=== PATIENT | female | born 1985 | race Caucasian/White ===

== ENCOUNTER → 2017-02-15 | Outpatient (REF) | payer OTHER ==
[2017-02-15 20:07] LABS: BASO % 0.4 % (0.0-1.0); EOS # 0.3 K/mm3 (0.0-0.50); EOS % 2.7 % (0.0-3.0); LARGE UNSTAINED CELL # 0.2 K/mm3 (0.0-0.4); LARGE UNSTAINED CELL % 1.6 % (0.0-4.0); LYMPH % 17.7 % (24.0-44.0); MEAN CORPUSCULAR HEMOGLOBIN 30.9 pg (27.0-33.0); MEAN CORPUSCULAR HGB CONC 32.5 g/dl (32.0-36.5); MEAN CORPUSCULAR VOLUME 95.1 fl (80.0-96.0); MONO # 0.6 K/mm3 (0.0-0.8); MONO % 4.9 % (0.0-5.0); NEUTROPHILS # 8.4 K/mm3 (1.8-7.7); NEUTROPHILS % 72.7 % (36.0-66.0); PLATELET COUNT, AUTOMATED 533 k/mm3 (150-450); RED CELL DISTRIBUTION WIDTH 13.8 % (11.5-14.5); WHITE BLOOD COUNT 11.5 K/mm3 (4.0-10.0)
[2017-02-15 20:28] LABS: ALBUMIN 3.8 GM/DL (3.2-5.2); ALBUMIN/GLOBULIN RATIO 1.15 (1.00-1.93); ALKALINE PHOSPHATASE 74 U/L (45-117); ALT/SGPT 14 U/L (12-78); AMYLASE 28 U/L (25-115); ANION GAP 6 MEQ/L (8-16); AST/SGOT 7 U/L (15-37); BILIRUBIN,TOTAL 0.3 MG/DL (0.2-1.0); BLOOD UREA NITROGEN 11 MG/DL (7-18); CARBON DIOXIDE LEVEL 29 MEQ/L (21-32); CHLORIDE LEVEL 107 MEQ/L (98-107); CREATININE FOR GFR 0.73 MG/DL (0.55-1.02); GLOMERULAR FILTRATION RATE > 60.0 (>60); GLUCOSE, FASTING 91 MG/DL (70-105); POTASSIUM SERUM 4.3 MEQ/L (3.5-5.1); SODIUM LEVEL 142 MEQ/L (136-145); TOTAL PROTEIN 7.1 GM/DL (6.4-8.2)
== END ==
LOC: M LABDRWAD 09:59
PROVIDERS: ATTEND Physician Assistant
DX: R10.11 Right upper quadrant pain (principal)

== ENCOUNTER 2021-01-26 00:43 | Inpatient (IN) | payer MEDICAID, OTHER ==
[2021-01-26] VITALS (26 sets, daily range): BP systolic 104–146; BP diastolic 62–89
[~2021-01-26] VITALS: Ht 162.6 cm; Wt 75.0 kg
[2021-01-26] MEDS ORDERED: LACTATED RINGER'S 1000 ML IV STA (01:22)
[2021-01-26] MEDS ORDERED: LR 1,000 ML IV SCH ×2 (01:25→03:40)
--- NOTE | 2021-01-26 01:33 | HPEPDOC ---
Obstetrical History & Physical General Date of Admission January 26, 2021 at 01:22 History of Present Illness 35-year-old G4, P3003 of unknown gestational age (no care). Presents with heavy vaginal bleeding and frequent, mild to moderately painful uterine contractions over the past several hours. Denies any large loss of fluid. Reports regular movement. ROS: no WHITAKER, cp, sob, fever/chills/nausea/vomiting. course: No care. Heroin use throughout . States she did not know she was until 2 weeks ago. PMH: Arteriovenous malformation status post craniotomy neurovascular surgery. Anxiety/Depression. Opioid addiction/Heroin use. SH: Craniotomy/neurosurgery. 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 (2002, 2004,2009) Sochx: No tobacco, alcohol or drug use FamHx: none reported. labs: Unavailable imaging: Not done Past Medical History Allergies Coded Allergies: No Known Allergies (Verified , 04/15/05) Physical Examination Physical Examination GENERAL: Alert and oriented times three. ABDOMEN: Gravid . +fundal tenderness. +guarding/rebound (acute abdomen). Fundal height 36-37cm. FETUS: Is vertex (VTX) by sterile vaginal examination (SVE), fetus is vertex (VTX) by Rey. HEART RATE: Regular rate and rhythm. LUNGS: Clear to auscultation (CTA). EXTREMITIES: No edema. No clonus. Deep tendon reflexes (DTRs) +. SVE: >300ml blood clot removed; active bleeding. 1cm dilated. US,bedside: cephalic EFM: 150bpm, moderate variability, reactive, no decels Golinda: ctxs every 1-2 min. US, official: evidence of intrauterine blood clot collection and large placental abruption. See official report. EGA c/w 35-37 weeks. Vital Signs/I&O Vital Signs Date Time Temp Pulse Resp B/P (MAP) Pulse Ox O2 Delivery O2 Flow Rate FiO2 01/26/21 00:52 97.2 150 18 135/89 (104) 99 Room Air Assessment/Plan Assessment 35yo . Acute placental abruption, clinically unstable. Membranes appear intact. Late /early term based on US measurements. Plan Admitted to L&D Consented for emergent PLTCS Anesthesia and Peds/ NICU notified. Preparations for the OR being made. NIRMAL MO DO January 26, 2021 01:33
[2021-01-26] MEDS ORDERED: PREN29CH2 PO (01:54)
[2021-01-26] MEDS ORDERED: TUMS500C PO (01:54)
[2021-01-26] MEDS ORDERED: ceFAZolin 2 GM/D5W 50 ML IV BAG (J0690 PER 500MG) As Ordered ONE (01:58)
[2021-01-26] MEDS ORDERED: BICITRA 30ML SOLN UDC As Ordered ONE (01:58)
[2021-01-26] MEDS ORDERED: AZITHROMYCIN INJ 500MG VIAL (J0456 PER 500MG) As Ordered ONE (01:59)
[2021-01-26 02:08] LABS: BASO # 0.1 10^3/uL (0.0-0.2); BASO % 0.5 % (0.0-1.0); EOS # 0.1 10^3/uL (0.0-0.5); EOS % 0.5 % (0.0-3.0); HEMATOCRIT 30.2 % (36.0-47.0); HEMOGLOBIN 9.5 g/dl (12.0-15.5); LYMPH # 2.4 10^3/uL (1.5-5.0); LYMPH % 11.4 % (24.0-44.0); MEAN CORPUSCULAR HEMOGLOBIN 27.9 pg (27.0-33.0); MEAN CORPUSCULAR HGB CONC 31.5 g/dl (32.0-36.5); MEAN CORPUSCULAR VOLUME 88.8 fl (80.0-96.0); MONO # 1.2 10^3/uL (0.0-0.8); MONO % 5.9 % (2.0-8.0); NEUTROPHILS # 16.4 10^3/uL (1.5-8.5); NEUTROPHILS % 79.6 % (36.0-66.0); PLATELET COUNT, AUTOMATED 383 10^3/uL (150-450); WHITE BLOOD COUNT 20.7 10^3/uL (4.0-10.0)
[2021-01-26] MEDS ORDERED: MORPHINE PRES-FREE INJ 10 MG/10 ML VIAL (J2274) As Ordered ONE (02:09)
[2021-01-26] MEDS ORDERED: AZITHROMYCIN INJ 500 MG, VIAL MATE ADAPTER 1 EACH in NS 250 ML IV ONE (02:10)
[2021-01-26] MEDS ORDERED: ceFAZolin SOD 2 GM in IV 1 EA IV ONE (02:10)
[2021-01-26] MEDS ORDERED: dexameTHASONE 4 MG/ML 1ML VIAL (J1100 PER 1MG) As Ordered ONE (02:11)
[2021-01-26] MEDS ORDERED: ONDANSETRON 4MG/2ML VIAL As Ordered ONE (02:11)
[2021-01-26] MEDS ORDERED: KETOROLAC 60MG 2ML VIAL As Ordered ONE (02:11)
[2021-01-26] MEDS ORDERED: OXYTOCIN 30 UNITS IN 0.9% NaCl 500ML IV BAG (J2590) As Ordered ONE (02:23)
[2021-01-26] MEDS ORDERED: fentaNYL 100 MCG/2 ML INJECTION (J3010) As Ordered ONE ×2 (02:24→03:24)
[2021-01-26] MEDS ORDERED: MIDAZOLAM INJ 2MG/2ML VIAL (J2250 PER 1MG) As Ordered ONE (02:30)
[2021-01-26 02:31] LABS: CORD GAS ABE V -12.8; CORD GAS HCO3 V 18.4 MEQ/L; CORD GAS O2 SAT V 31.8 %; CORD GAS PH V 7.057 UNITS; CORD GAS PO2 V 19.3 mmHg; CORD GAS SBC V 13.4 MEQ/L; CORD GAS TCO2 V 20.5 MEQ/L
[2021-01-26] MEDS ORDERED: OXYTOCIN INJ 10 UNITS/ML VIAL (J2590) As Ordered ONE (02:31)
[2021-01-26 02:32] LABS: CORD GAS ABE A -11.5; CORD GAS HCO3 A 21.4 MEQ/L; CORD GAS O2 SAT A 31.4 %; CORD GAS PCO2 A 85.4 mmHg; CORD GAS PH A 7.016 UNITS; CORD GAS PO2 A 20.3 mmHg; CORD GAS SBC A 14.3 MEQ/L
[2021-01-26 02:33] LABS: ALT/SGPT 8 U/L (12-78); BILIRUBIN,TOTAL 0.2 MG/DL (0.2-1.0); GLOMERULAR FILTRATION RATE > 60.0 (>60); LDH LACTATE DEHYDROGENASE 183 U/L (84-246)
[2021-01-26 02:34] LABS: INR 1.06
[2021-01-26] MEDS ORDERED: SUGAMMADEX SODIUM 500 MG/5 ML VIAL (BRIDION) As Ordered ONE (02:39)
[2021-01-26] MEDS ORDERED: METOCLOPRAMIDE INJ 10MG/2ML VIAL (J2765 PER 1) As Ordered ONE (02:39)
--- NOTE | 2021-01-26 03:09 | REPVR ---
PROCEDURE INFORMATION: Exam: US After First Trimester, Transabdominal Exam date and time: 01/26/2021 2:03 AM Age: 35 years old Clinical indication: Lmp or gestational age (in weeks): Unknown; Antepartum complications; Bleeding; ; Additional info: Unknown ega/third trimester, heavy bleeding (bedside us/efw). According to the ultrasound technologist sonographer's notes, Dr. Mueller was present during the ultrasound. TECHNIQUE: Imaging protocol: Real-time transabdominal obstetrical ultrasound of the maternal pelvis and a second or third trimester with image documentation. COMPARISON: No relevant prior studies available. FINDINGS: Gestation: There is a single live intrauterine . heart rate: 158 bpm presentation: Cephalic Placenta: Grade 2. The location of the placenta is posterior. There is a 12.4 cm x 10 cm x 12.1 cm complex area along the right lateral superior tip of the placenta and an additional 10.4 cm x 8.9 cm x 11.2 cm complex predominantly hyperechoic region along the right lateral inferior placental tip without internal vascularity, which may represent hemorrhage and placental abruption. Amniotic fluid: Within normal limits. Amniotic fluid index: 14.8 cm ANATOMY: midline falx: Within normal limits. lateral ventricles: Within normal limits. choroid plexus: Within normal limits. cerebellum: Suboptimally evaluated due to positioning. cisterna magna: Suboptimally evaluated due to positioning. upper lip and nose: Within normal limits. heart four-chamber view, heart size and position: Within normal limits. kidneys: Within normal limits. stomach: Within normal limits. urinary bladder: Within normal limits. spine: Within normal limits. Umbilical cord insertion site into the abdomen: Within normal limits. Umbilical cord vessel number: Normal 3 vessel umbilical cord. arms and hands: The right upper extremity is within normal limits as visualized. The left upper extremity was suboptimally evaluated due to positioning. legs and feet: The right lower extremity is within normal limits as visualized. The left lower extremity was suboptimally evaluated due to positioning. BIOMETRY: Gestational age (AUA): 35 weeks 4 days Estimated due date (AUA): 02/26/2021 Estimated weight: 2749 g (2348 - 3150 g) / 6 lb 0 oz Estimated weight percentile: 52% Biparietal diameter: 8.8 cm; 35 weeks 5 days; 52nd percentile Head circumference: 32.4 cm; 36 weeks 5 days; 68th percentile Abdominal circumference: 32.7 cm; 36 weeks 4 days; 65th percentile Humerus length: 5.7 cm; 32 weeks 6 days; <5th percentile Femur length: 6.5 cm; 33 weeks 3 days; 17 percentile biometric ratios: CI = 0.76 (0.70-0.86); FL/BPD = 0.73 (0.71-0.87); HC/AC = 0.99 (0.93-1.12); FL/AC = 0.20 (0.20-0.24) IMPRESSION: 1. Single live intrauterine in cephalic position with appropriate signs of growth, an estimated gestational age of 35 weeks 4 days, and an estimated due date on 02/26/2021 based on today's ultrasound. 2. 12.4 cm x 10 cm x 12.1 cm complex area along the right lateral superior tip of the placenta and an additional 10.4 cm x 8.9 cm x 11.2 cm complex predominantly hyperechoic region along the right lateral inferior placental tip without internal vascularity, which may represent hemorrhage and are suspicious for placental abruption. Electronically signed by: Braulio Cason On 01/26/2021 03:09:23 AM
[2021-01-26] MEDS ORDERED: MEASLES,MUMPS,RUBELLA VACCINE INJ (MMR-II) (90707) SC SCH (03:15)
[2021-01-26] MEDS ORDERED: OXYTOCIN DRIP 30 UNITS in IV 1 EA IV SCH (03:15)
[2021-01-26] MEDS ORDERED: RHOGAM 300 MCG (1500 IU) INJ (J2790) IM SCH (03:15)
[2021-01-26] MEDS: fentaNYL 100 MCG/2 ML INJECTION (J3010) IV PRN ×8 (03:26→04:01)
--- NOTE | 2021-01-26 03:28 | ROOPDOC ---
[facility] Report Of Operation Report of Operation DATE OF PROCEDURE: 01/26/2021 PREPROCEDURE DIAGNOSES: 1. Early term, versus late gestation (35+4 weeks by today's US measurements). 2. acute placental abruption 3. . No care 4. Opioid/heroin abuse POSTPROCEDURE DIAGNOSES: Same PROCEDURE: Emergent primary low transverse section SURGEON: Sherwin Mueller DO FACOG COMPOSITE MECHANIC: Buster Mclaughlin MD (Essential role in retraction, extraction, and closure of all tissue layers) ANESTHESIA: General ETA ESTIMATED BLOOD LOSS: 1000 mL. IV FLUIDS: 2000 mL LR URINE OUTPUT: 20 mL COMPLICATIONS: None. PREOPERATIVE ANTIBIOTICS: Ancef 2g IV x 1, Azithromycin 500mg IV COMPLICATIONS: none DATA: Apgars 5 and 9. Birthweight 5 g, 8 lbs 2500 oz. [Cord gases: see Meditech] SPECIMENS: none PRIMARY INDICATION FOR : Acute placental abruption, clinically unstable DESCRIPTION OF PROCEDURE: The patient was counseled on the risks, benefits, indications and alternatives of the procedure. Informed consent was obtained. She was taken to the operating room with IV running and placed on the operating table in the dorsal supine position with a leftward tilt. Sequential compression devices were placed on the lower extremities. A Wilks catheter was placed under sterile conditions. She was prepared and draped in normal sterile fashion. A time out was performed per protocol. General anesthesia was administered and the airway was secured. A Pfannenstiel skin incision was made with the 10 blade. The 10 blade was used to dissect down to the level of the rectus sheath fascia. The rectus sheath pressure was incised midline and this was extended bilaterally with manual stretch. The rectus muscle bellies were dissected off the rectus sheath fascia superiorly and inferiorly using blunt dissection. The midline was identified. The peritoneum was identified and entered digitally. The peritoneal opening was extended with manual stretch. The Mobius retractor was placed. A low transverse uterine incision was made with the 10 blade. This was extended with manual stretch. The amniotic sac was punctured, and bloody fluid with a large amount of clot was removed. The baby delivered through the hysterotomy without difficulty. The cord was doubly clamped and cut, and the baby was handed off to awaiting care. data shown above. Cord blood obtained. Cord gases were obtained. The placenta was removed manually. The intrauterine cavity was cleared of all clot and debris. The hysterotomy was closed with 0 Vicryl in running locked fashion. This was reinforced with a second imbricating layer using 0 Vicryl in running fashion. Excellent hemostasis of the hysterotomy was noted. The pelvis was irrigated and the fluid suctioned. The Mobius retractor was removed. The peritoneum was closed with 3-0 Vicryl running fashion. The rectus muscle bellies were reapproximated with interrupted stitches using 3-0 Vicryl. The rectus muscles bellies were hemostatic. The rectus sheath fascia was closed with 0 Vicryl running fashion. The subcutaneous layer was irrigated and the fluid suctioned. Small bleeding vessels were cauterized with Bovie. Excellent hemostasis was noted. The subcutaneous layer was reapproximated with 3-0 Vicryl running fashion. Skin was closed with 3-0 Monocryl in subcuticular fashion. An Optifoam bandage was placed over the closed incision. Sponge, needle and instrument counts were correct per protocol throughout the procedure. The patient tolerated the entire procedure very well. She was extubated and transferred to the PACU in stable condition. DO YASHIRA Palacios JONATHAN R. DO January 26, 2021 03:28
[2021-01-26] MEDS ORDERED: ONDANSETRON 4MG/2ML VIAL IV PRN (03:40)
[2021-01-26] MEDS ORDERED: METOCLOPRAMIDE INJ 10MG/2ML VIAL (J2765 PER 1) IV PRN (03:40)
[2021-01-26] MEDS ORDERED: PERCOCET 5MG/325MG TAB PO PRN (03:40)
[2021-01-26] MEDS ORDERED: ACETAMINOPHEN *IV* 1,000 MG IV ONE ×2 (03:40)
[2021-01-26 03:49] LABS: AMPHETAMINES URINE REFLEX NEGATIVE (NEGATIVE); BARBITURATES URINE REFLEX NEGATIVE (NEGATIVE); BENZODIAZEPINES URINE REFLEX NEGATIVE (NEGATIVE); CANNABINOIDS URINE REFLEX NEGATIVE (NEGATIVE); COCAINE METABOLITE URINE REFLE NEGATIVE (NEGATIVE); METHADONE URINE REFLEX NEGATIVE (NEGATIVE); PHENCYCLIDINE URINE REFLEX NEGATIVE (NEGATIVE); TOTAL PROTEIN,RANDOM URINE 122.3 MG/DL (0.0-12.0)
[2021-01-26] MEDS ORDERED: KETOROLAC 30 MG/ML 1ML VIAL IV PRN (03:50)
[2021-01-26] MEDS ORDERED: ACETAMINOPHEN 1000MG 100ML IV BTL (OFIRMEV) (J0131 PER 10MG) As Ordered ONE (03:52)
[2021-01-26 04:17] LABS: OPIATES URINE REFLEX PENDING CONFIRMATION (NEGATIVE)
[2021-01-26] MEDS: LR 1,000 ML IV SCH ×3 (04:39→20:19)
[2021-01-26] MEDS: PERCOCET 5MG/325MG TAB PO PRN (07:35)
[2021-01-26] MEDS ORDERED: diphenhydrAMINE 50MG/ML VIAL (J1200) As Ordered ONE (08:12)
[2021-01-26] MEDS ORDERED: diphenhydrAMINE 50MG/ML VIAL (J1200) IV STA (08:13)
[2021-01-26] MEDS: ACETAMINOPHEN 500 MG TAB PO PRN (08:14)
[2021-01-26] MEDS ORDERED: BOOSTRIX/ADACEL VACCINE (DIPHTH/PERTUSS/ACELL/TETANUS) 0.5ML SYR IM ONE (09:00)
[2021-01-26 09:14] LABS: BASO % 0.1 % (0.0-1.0); HEMATOCRIT 24.1 % (36.0-47.0); HEMOGLOBIN 7.7 g/dl (12.0-15.5); LYMPH # 1.5 10^3/uL (1.5-5.0); LYMPH % 8.9 % (24.0-44.0); MEAN CORPUSCULAR VOLUME 87.6 fl (80.0-96.0); MONO # 0.6 10^3/uL (0.0-0.8); MONO % 3.7 % (2.0-8.0); NEUTROPHILS # 14.2 10^3/uL (1.5-8.5); NEUTROPHILS % 86.3 % (36.0-66.0); RED BLOOD COUNT 2.75 10^6/uL (4.00-5.40); WHITE BLOOD COUNT 16.4 10^3/uL (4.0-10.0)
[2021-01-26 09:17] LABS: PLATELET COUNT, AUTOMATED 188 10^3/uL (150-450)
[2021-01-26] MEDS: DOCUSATE SODIUM 100MG CAPSULE PO SCH ×2 (09:22→21:00)
[2021-01-26] MEDS: KETOROLAC 30 MG/ML 1ML VIAL IV SCH ×3 (09:22→21:10)
[2021-01-26] MEDS: PRENATAL VITAMINS CHEWABLE TABLET PO SCH (09:22)
[2021-01-26 09:54] LABS: HEPATITIS C VIRUS ABY INDEX < 0.0 INDEX (<0.8); HIV 1&2 SCREEN CENTAUR NEGATIVE (NEGATIVE)
[2021-01-26] MEDS: ONDANSETRON 4MG/2ML VIAL IV PRN ×2 (11:27→20:19)
[2021-01-26] MEDS: MORPHINE 4 MG/ML 1ML VIAL/SYRINGE (J2270) IV PRN ×3 (11:28→20:18)
[2021-01-26] MEDS ORDERED: PROMETHAZINE 25 MG TAB PO ONE (13:35)
[2021-01-26] MEDS: METOCLOPRAMIDE INJ 10MG/2ML VIAL (J2765 PER 1) IV PRN (13:53)
[2021-01-26] MEDS ORDERED: ACETAMINOPHEN 500 MG TAB PO ONE (16:45)
[2021-01-26] MEDS ORDERED: diphenhydrAMINE 50MG/ML VIAL (J1200) IV ONE (16:45)
[2021-01-26] MEDS ORDERED: METOCLOPRAMIDE INJ 10MG/2ML VIAL (J2765 PER 1) IV SCH (18:00)
[2021-01-26] MEDS: diphenhydrAMINE 50MG/ML VIAL (J1200) IV PRN (21:53)
[2021-01-27 02:00] VITALS: BP 120/72
[2021-01-27] MEDS: KETOROLAC 30 MG/ML 1ML VIAL IV SCH ×2 (03:38→08:46)
[2021-01-27] MEDS: diphenhydrAMINE 50MG/ML VIAL (J1200) IV PRN ×2 (03:38→09:47)
[2021-01-27] MEDS: LR 1,000 ML IV SCH (03:38)
[2021-01-27] MEDS: PERCOCET 5MG/325MG TAB PO PRN ×2 (05:42→17:06)
[2021-01-27 05:56] VITALS: BP 116/68
[2021-01-27] MEDS: METOCLOPRAMIDE INJ 10MG/2ML VIAL (J2765 PER 1) IV PRN (06:17)
[2021-01-27] MEDS ORDERED: LACTATED RINGER'S 1000 ML IV ONE (06:35)
[2021-01-27 07:28] LABS: HEMATOCRIT 22.2 % (36.0-47.0); HEMOGLOBIN 7.2 g/dl (12.0-15.5); RED BLOOD COUNT 2.51 10^6/uL (4.00-5.40); WHITE BLOOD COUNT 10.9 10^3/uL (4.0-10.0)
[2021-01-27 07:29] LABS: MEAN CORPUSCULAR HEMOGLOBIN 28.7 pg (27.0-33.0); MEAN CORPUSCULAR HGB CONC 32.4 g/dl (32.0-36.5); MEAN CORPUSCULAR VOLUME 88.4 fl (80.0-96.0); PLATELET COUNT, AUTOMATED 191 10^3/uL (150-450)
[2021-01-27] MEDS: DOCUSATE SODIUM 100MG CAPSULE PO SCH ×2 (08:45→21:45)
[2021-01-27] MEDS: PRENATAL VITAMINS CHEWABLE TABLET PO SCH (08:45)
[2021-01-27] MEDS ORDERED: BOOSTRIX/ADACEL VACCINE (DIPHTH/PERTUSS/ACELL/TETANUS) 0.5ML SYR IM ONE (09:00)
[2021-01-27 10:00] VITALS: BP 136/79
[2021-01-27 14:00] VITALS: BP 114/71
[2021-01-27] MEDS: IBUPROFEN 800 MG TAB PO SCH (17:05)
[2021-01-27 18:00] VITALS: BP 125/73
[2021-01-27 22:00] VITALS: BP 125/70
[2021-01-28] MEDS: PERCOCET 5MG/325MG TAB PO PRN ×2 (00:05→06:13)
[2021-01-28] MEDS: SIMETHICONE 80MG CHEW TAB PO PRN ×2 (00:05→11:09)
[2021-01-28 02:00] VITALS: BP 114/69
[2021-01-28] MEDS: IBUPROFEN 800 MG TAB PO SCH ×2 (04:09→08:15)
[2021-01-28 06:00] VITALS: BP 129/78
[2021-01-28] MEDS ORDERED: IBUP80TA PO (07:27)
[2021-01-28] MEDS ORDERED: OXYC1TAB23 PO (07:27)
--- NOTE | 2021-01-28 07:34 | DS.PDOC ---
Discharge Summary General Date of Admission January 26, 2021 at 01:22 Date of Discharge January 28, 2021 Discharge Summary PROCEDURES PERFORMED DURING STAY: . ADMITTING DIAGNOSES: 1. 35 weeks, placental abruption. DISCHARGE DIAGNOSES: 1. same. COMPLICATIONS/CHIEF COMPLAINT: Labor Check. HISTORY OF PRESENT ILLNESS: 35 yo at 35 week, with no care, presents to hospital with sharp pains and vaginal bleeding. She was diagnosed with a large placental abruption by ultrasound. She proceeded to an urgent section. There were no complications. Her post-operative course was significant for anemia, requiring blood transfusion. She had adequate return of bladder and bowel function. She was stable for discharge day#2. Baby in NICU. DISCHARGE MEDICATIONS: Please see below. ALLERGIES: Please see below. PHYSICAL EXAMINATION ON DISCHARGE: VITAL SIGNS: Please see below. GENERAL: WNL HEENT: NCAT CARDIOVASCULAR EXAMINATION: RRR RESPIRATORY EXAMINATION: CT ABDOMINAL EXAMINATION: NT, FF EXTREMITIES: NT, tr edema LABORATORY DATA: Please see below. PROGNOSIS: good ACTIVITY: [As tolerated]. DIET: reg DISCHARGE PLAN: home DISCHARGE INSTRUCTIONS: 1. d/c home instructions reveiwed fu office 2 weeks.. DISCHARGE CONDITION: Stable. TIME SPENT ON DISCHARGE: Greater than 10 minutes. Vital Signs/I&Os Vital Signs Date Time Temp Pulse Resp B/P (MAP) Pulse Ox O2 Delivery O2 Flow Rate FiO2 01/28/21 06:13 20 01/28/21 06:00 99.3 94 129/78 (95) 100 Room Air 01/26/21 10:21 2.0 I&O- Last 24 Hours up to 6 AM 01/28/21 06:00 Intake Total 200 ml Output Total 775 ml Balance -575 ml Discharge Medications Scheduled Calcium Carbonate (Tums) 200 Mg Tab.chew, 2 TAB PO QID for cough and congestion, (Reported) Ibuprofen (Ibuprofen) 800 Mg Tablet, 800 MG PO Q8H No115/Iron/Folic Acid ( 19 Chewable Tablet) 1 Each Tab.chew, 1 TAB PO DAILY, (Reported) Scheduled PRN Oxycodone HCl/Acetaminophen (Oxycodone-Acetaminophen 5-325) 1 Each Tablet, 1 TAB PO TIDP PRN for pain Allergies Coded Allergies: codeine (Verified Allergy, Mild, 01/26/21) nausea latex (Verified Allergy, Mild, 5/5/21) states latex sensitive, rash GEORGE HEART MD January 28, 2021 07:34
[2021-01-28] MEDS ORDERED: BOOSTRIX/ADACEL VACCINE (DIPHTH/PERTUSS/ACELL/TETANUS) 0.5ML SYR IM ONE (09:00)
[2021-01-28] MEDS: PRENATAL VITAMINS CHEWABLE TABLET PO SCH (09:52)
[2021-01-28] MEDS: DOCUSATE SODIUM 100MG CAPSULE PO SCH (09:53)
[2021-01-28] MEDS: ACETAMINOPHEN 500 MG TAB PO PRN (11:09)
[2021-02-01 18:07] LABS: Codeine Positive (.); GC Codeine 1998 ng/mL (Cutoff=200); GC Morphine 109020 ng/mL (Cutoff=200); Morphine Positive (.); Opiates Positive (.)
== END 2021-01-28 12:10 | disposition home or self-care (01) | DRG 540 ==
LOC: M LDO 00:43 → M LDI 01:22 → M OBS 04:20
PROVIDERS: ADMIT Obstetrics & Gynecology; ATTEND Obstetrics & Gynecology
PROC: 30233N1 Transfusion of Nonautologous Red Blood Cells into Peripheral Vein, Percutaneous Approach (ICD-10-PCS; 2021-01-26)
PROC: 10D00Z1 Extraction of Products of Conception, Low, Open Approach (ICD-10-PCS; principal; 2021-01-26 03:14)
DX: O45.93 Premature separation of placenta, unspecified, third trimester (principal); Z3A.35 35 weeks gestation of pregnancy; Z37.0 Single live birth; O09.33 Supervision of pregnancy with insufficient antenatal care, third trimester; O90.81 Anemia of the puerperium

== ENCOUNTER → 2025-04-27 | Outpatient (REF) | payer OTHER ==
[~2025-04-27] MED LIST: IBUP80TA PO; OXYC1TAB23 PO; PREN29CH2 PO; TUMS500C PO
[2025-04-27 12:45] LABS: PLATELET COUNT, AUTOMATED 568 10^3/uL (150-450)
[2025-04-27 12:48] LABS: CALCIUM LEVEL 9.2 MG/DL (8.5-10.1); CARBON DIOXIDE LEVEL 29 MMOL/L (20-31); CHLORIDE LEVEL 103 MMOL/L (98-107); CREATININE FOR GFR 0.62 MG/DL (0.55-1.30); GLOMERULAR FILTRATION RATE > 90.0 (>58); POTASSIUM SERUM 4.0 MMOL/L (3.5-5.1); SODIUM LEVEL 140 MMOL/L (136-145)
== END ==
LOC: M LABWUC 12:12
PROVIDERS: ATTEND Nurse Practitioner
DX: I33.0 Acute and subacute infective endocarditis (principal)

== ENCOUNTER → 2025-05-04 | Outpatient (CLI) | payer OTHER ==
[2025-05-04 17:27] LABS: PLATELET COUNT, AUTOMATED 453 10^3/uL (150-450)
[2025-05-04 17:39] LABS: CALCIUM LEVEL 9.4 MG/DL (8.5-10.1); CARBON DIOXIDE LEVEL 26 MMOL/L (20-31); CHLORIDE LEVEL 104 MMOL/L (98-107); CREATININE FOR GFR 0.70 MG/DL (0.55-1.30); GLOMERULAR FILTRATION RATE > 90.0 (>58); POTASSIUM SERUM 4.7 MMOL/L (3.5-5.1); SODIUM LEVEL 142 MMOL/L (136-145)
== END ==
LOC: M WUC 13:22
PROVIDERS: ATTEND Nurse Practitioner
DX: I33.0 Acute and subacute infective endocarditis (principal)

== ENCOUNTER → 2025-05-04 | Outpatient (CLI) | payer OTHER ==
[2025-05-04 17:41] LABS: INR 1.09
[2025-05-04 19:47] LABS: PLATELET COUNT, AUTOMATED 467 10^3/uL (150-450)
[2025-05-04 19:49] LABS: CALCIUM LEVEL 9.5 MG/DL (8.5-10.1); CARBON DIOXIDE LEVEL 26 MMOL/L (20-31); CHLORIDE LEVEL 105 MMOL/L (98-107); CREATININE FOR GFR 0.70 MG/DL (0.55-1.30); GLOMERULAR FILTRATION RATE > 90.0 (>58); POTASSIUM SERUM 4.7 MMOL/L (3.5-5.1); SODIUM LEVEL 143 MMOL/L (136-145)
== END ==
LOC: M WUC 13:19
PROVIDERS: ATTEND Internal Medicine Interventional Cardiology
DX: Z79.01 Long term (current) use of anticoagulants (principal); Z95.2 Presence of prosthetic heart valve

== ENCOUNTER → 2025-05-11 | Outpatient (CLI) | payer OTHER ==
[2025-05-11 12:10] LABS: INR 1.15
== END ==
LOC: M WUC 09:25
PROVIDERS: ATTEND Internal Medicine Interventional Cardiology
DX: Z79.01 Long term (current) use of anticoagulants (principal); Z95.2 Presence of prosthetic heart valve

== ENCOUNTER → 2025-05-11 | Outpatient (CLI) | payer OTHER ==
[2025-05-11 11:56] LABS: PLATELET COUNT, AUTOMATED 330 10^3/uL (150-450)
[2025-05-11 12:33] LABS: CALCIUM LEVEL 9.4 MG/DL (8.5-10.1); CARBON DIOXIDE LEVEL 27 MMOL/L (20-31); CHLORIDE LEVEL 106 MMOL/L (98-107); CREATININE FOR GFR 0.74 MG/DL (0.55-1.30); GLOMERULAR FILTRATION RATE > 90.0 (>58); POTASSIUM SERUM 4.6 MMOL/L (3.5-5.1); SODIUM LEVEL 142 MMOL/L (136-145)
== END ==
LOC: M WUC 09:23
PROVIDERS: ATTEND Nurse Practitioner
DX: I33.0 Acute and subacute infective endocarditis (principal)

== ENCOUNTER → 2025-05-18 | Outpatient (REF) | payer OTHER ==
[2025-05-18 14:15] LABS: PLATELET COUNT, AUTOMATED 381 10^3/uL (150-450)
[2025-05-18 14:21] LABS: CALCIUM LEVEL 9.7 MG/DL (8.5-10.1); CARBON DIOXIDE LEVEL 26 MMOL/L (20-31); CHLORIDE LEVEL 103 MMOL/L (98-107); CREATININE FOR GFR 0.79 MG/DL (0.55-1.30); GLOMERULAR FILTRATION RATE > 90.0 (>58); POTASSIUM SERUM 4.7 MMOL/L (3.5-5.1); SODIUM LEVEL 140 MMOL/L (136-145)
== END ==
LOC: M LABWUC 14:00
PROVIDERS: ATTEND Nurse Practitioner
DX: I33.0 Acute and subacute infective endocarditis (principal)

== ENCOUNTER → 2025-05-18 | Outpatient (REF) | payer OTHER ==
[2025-05-18 14:23] LABS: INR 1.52
== END ==
LOC: M LABWUC 13:58
PROVIDERS: ATTEND Internal Medicine Interventional Cardiology
DX: Z79.01 Long term (current) use of anticoagulants (principal); Z95.2 Presence of prosthetic heart valve

== ENCOUNTER → 2025-05-27 | Outpatient (CLI) | payer OTHER ==
[2025-05-27 12:04] LABS: PLATELET COUNT, AUTOMATED 333 10^3/uL (150-450)
[2025-05-27 12:13] LABS: INR 1.35
[2025-05-27 12:41] LABS: CALCIUM LEVEL 9.8 MG/DL (8.5-10.1); CARBON DIOXIDE LEVEL 30 MMOL/L (20-31); CHLORIDE LEVEL 100 MMOL/L (98-107); CREATININE FOR GFR 0.69 MG/DL (0.55-1.30); GLOMERULAR FILTRATION RATE > 90.0 (>58); POTASSIUM SERUM 4.2 MMOL/L (3.5-5.1); SODIUM LEVEL 143 MMOL/L (136-145)
== END ==
LOC: M WUC 08:45
PROVIDERS: ATTEND Nurse Practitioner
DX: I33.0 Acute and subacute infective endocarditis (principal)

== ENCOUNTER → 2025-06-02 | Outpatient (CLI) | payer OTHER ==
[2025-06-02 12:32] LABS: INR 2.04
== END ==
LOC: M WUC 09:18
PROVIDERS: ATTEND Internal Medicine Interventional Cardiology
DX: Z51.81 Encounter for therapeutic drug level monitoring (principal); Z79.01 Long term (current) use of anticoagulants; Z95.2 Presence of prosthetic heart valve

== ENCOUNTER → 2025-06-08 | Outpatient (CLI) | payer OTHER ==
[2025-06-08 12:15] LABS: INR 1.56
== END ==
LOC: M WUC 09:37
PROVIDERS: ATTEND Internal Medicine Interventional Cardiology
DX: Z79.01 Long term (current) use of anticoagulants (principal)

== ENCOUNTER → 2025-06-15 | Outpatient (CLI) | payer OTHER ==
[2025-06-15 12:22] LABS: INR 2.18
== END ==
LOC: M WUC 09:11
PROVIDERS: ATTEND Internal Medicine Interventional Cardiology
DX: Z79.01 Long term (current) use of anticoagulants (principal)

== ENCOUNTER → 2025-08-18 | Outpatient (CLI) | payer OTHER ==
[2025-08-18 11:35] LABS: BASO # 0.1 10^3/uL (0.0-0.2); BASO % 1.0 % (0.0-1.0); EOS # 0.6 10^3/uL (0.0-0.5); EOS % 9.1 % (0.0-3.0); LYMPH # 2.2 10^3/uL (1.5-5.0); LYMPH % 32.2 % (24.0-44.0); MONO # 0.6 10^3/uL (0.0-0.8); MONO % 8.5 % (2.0-8.0); NEUTROPHILS # 3.3 10^3/uL (1.5-8.5); NEUTROPHILS % 49.1 % (36.0-66.0); PLATELET COUNT, AUTOMATED 317 10^3/uL (150-450)
[2025-08-19 10:37] LABS: HEPATITIS A IgG TOTAL REACTIVE (NON-REACTIVE)
[2025-08-21 12:02] LABS: HCV RNA QUANTITATION 53100 IU/mL (NOT DETECTED); HCV RNA log10 4.73 Log IU/mL (NOT DETECTED)
== END ==
LOC: M PLALAB 08:58
PROVIDERS: ATTEND Internal Medicine Infectious Disease
DX: B18.2 Chronic viral hepatitis C (principal)